=== PATIENT | female | born 1945 | race Caucasian/White ===

== ENCOUNTER 2025-10-06 10:11 | Outpatient (AMB) | payer MEDICARE, BC, SELFPAY ==
--- NOTE | 2025-10-06 10:13 | A.PHYSOV ---
Vital Signs 10/06/25 10:18 Height 5 ft 1 in Weight 172 lb BMI 32.5 Intake Visit Reasons: [facility]- low back pain Intake Note: Patient is a 80 year old female here today for a new patient office visit. Patient has been referred for chronic lower back pain. Coiled Coil Inspector Required: No Allergies No Known Allergies Allergy (Verified 10/06/25 10:14) HPI Comments Details: History of Present Illness The patient is an 80 year old individual presenting for evaluation of chronic lower back pain. The patient states the pain has been present for quite a while and is primarily located in the lower back without radiation into the legs. The patient denies any history of sciatica. The patient reports one episode of pain so severe that the patient was unable to get out of bed. The pain is exacerbated by weather changes, specifically rain, and improves with movement and walking. It is also worse in the mornings, and the patient reports difficulty rising from a seated or lying position. Today, the pain level is rated a 4 out of 10. Past treatments include qbjx-tzo-quazqgn medications like Advil and Aleve, as well as topical agents such as Aspercreme. The patient was prescribed meloxicam, which provided significant relief, and now uses it on an as-needed basis. The patient has not previously undergone physical therapy for the back or seen a chiropractor. I reviewed the referring provider's no prior to consultation. Pain Description - Onset: The patient has had the pain for quite a while. - Location: The pain is primarily in the lower back, more so on the right side, and does not radiate into the legs. - Severity: Current pain is a 4/10, though it was worse yesterday. - Exacerbating Factors: Pain worsens with rain and barometric pressure changes, bending forward, and rising from a seated or lying position. - Relieving Factors: Pain improves once the patient is up and moving around. PFSH Surgical History Hx of tonsillectomy Status post Mohs surgery H/O: hysterectomy History of cholecystectomy Previous section Social History Alcohol intake: never Patient Tobacco Use Status: Never used Tobacco Review of Systems Narrative Review of Systems - Musculoskeletal: Reports chronic lower back pain, which is worse with inactivity and improves with movement. - Reports symptoms are exacerbated by weather changes. - Neurological: Denies radiating leg pain or sciatica. Physical Exam Exam Exam: Physical Exam Lumbar Spine: Examination of her lumbar spine, there is no visible swelling or deformity. She is tender to lower lumbar facets on the right. She is otherwise nontender. Full range of motion of the lumbar spine. She does have an increase in pain with facet loading. Special Tests: Lhermittes sign was negative Heel Toe walk is normal Left straight leg raise: Negative Right straight leg raise: Negative Special tests [place] test is negative Ganslen's test is negative SI Joint compression test negative Ishan test negative Piriformis stretch is negative Lower Extremities: Full range of motion bilateral lower extremities. No calf pain or edema. Neuro: Sensation: Intact to lower extremities bilaterally Strength L2 (Psoas): 5/5 on the left and 5/5 on the right. L3 (Quads): 5/5 on the left and 5/5 on the right. L4 (Ant tibialis): 5/5 on the left and 5/5 on the right. L5 (EHL) 5/5 on the left and 5/5 on the right. S1 (Gastroc): 5/5 on the left and 5/5 on the right. DTR L4: (Patellar) Left 2 Right 2 S1: (Achilles) Left 2 Right 2 Babinski Downgoing No pathologic clonus. No involuntary movement. Vital Signs: BMI result Body Mass Index 32.5 Assessment & Plan Assessment & Plan (1) Low back pain: Code(s): M54.50 - Low back pain, unspecified Category: Medical Qualifiers: Chronicity: chronic Back pain laterality: right Sciatica presence: without sciatica Qualified Code(s): M54.50 - Low back pain, unspecified; G89.29 - Other chronic pain (2) Lumbar spondylolysis: Code(s): M43.06 - Spondylolysis, lumbar region Category: Medical Plan Pain Management - Affect: At its worst, the pain was described as through the roof. - Analgesia: The patient currently uses meloxicam on an as-needed basis, which has been very effective. - The patient previously used [id number] NSAIDs and topical creams. - Current pain level is 4/10. - Adverse Effects: None reported. - Activities of Daily Living: The patient reports difficulty getting out of bed and standing up from a chair, requiring effort. - Function improves with ambulation. - Aberrant Drug Related Behaviors: The patient appropriately uses meloxicam only as needed to minimize medication intake. Plan Patient was informed and verbally consented to the use of an ambient scribe for clinic note documentation during this visit. 1. Low Back Pain The patient's chronic lower back pain is consistent with a diagnosis of degenerative disc disease, as confirmed by a recent MRI showing moderate narrowing at L3-4 on the right. Despite the imaging findings, the patient's symptoms are primarily mechanical and axial, without evidence of radicular nerve pain. Conservative and invasive treatment options were discussed, including physical therapy, medications, and spinal injections. The patient elected to begin with conservative management. An order for physical therapy will be provided. A muscle relaxer will be prescribed for nighttime use to help with pain and sleep. The patient may continue using meloxicam as needed for pain. The patient was advised to return for follow-up if symptoms do not improve or worsen with therapy to consider other options, such as injections. Discussion Notes I explained to the patient that the diagnosis is degenerative disc disease based on MRI findings, with the most affected level being L3-4. I noted that despite the narrowing seen on imaging, the clinical presentation does not suggest significant nerve pain. We reviewed treatment options, including conservative measures like physical therapy and medications, as well as more invasive procedures like cortisone injections. I recommended starting with physical therapy as the first step, given it has not been tried for the back previously. The patient agreed with this conservative approach and expressed a desire to avoid injections unless absolutely necessary, acknowledging the associated risks. I will provide an order for physical therapy and prescribe a muscle relaxer for nighttime use. I instructed the patient to follow up if physical therapy is not effective or worsens symptoms, at which point we can reconsider other treatments. Patient Instructions - Please start physical therapy for your lower back. - You will be given a paper order to take to the [facility] physical therapy clinic on [facility] in [place]. - A prescription for a muscle relaxer will be sent to your pharmacy. - You may take this at night to help with pain. - Continue to use your meloxicam medication only when you feel you really need it for pain. - If your pain gets better with physical therapy, you can stop formal therapy and continue doing the exercises at home. - If physical therapy does not help or makes your pain worse, please call our office to schedule a follow-up visit to discuss other options like injections. Orders: Orders PT Evaluation and Treatment Today M43.06 - Spondylolysis, lumbar region, M54.50 - Low back pain, unspecified Medications: New tizanidine HS 4 mg PO ONCE 30 caps 3RF muscle spasticity Coding Level of Care Code Tele New Pt Level 4 (23049) Diagnoses Chronic right-sided low back pain without sciatica M54.50; G89.29 Chronicity: chronic Back pain laterality: right Sciatica presence: without sciatica Lumbar spondylolysis M43.06
[2025-10-06 10:18] VITALS: BMI 32.5
== END 2025-10-06 10:55 | disposition home or self-care (01) ==
LOC: HO.HPHYS 10:11
PROVIDERS: PCP Internal Medicine; Visit Provider Physician Assistant
DX: M54.50 Low back pain, unspecified (principal); G89.29 Other chronic pain; M43.06 Spondylolysis, lumbar region
CPT/HCPCS: 99204

== ENCOUNTER → 2025-10-06 10:11 | Outpatient (BNVA) | payer MEDICARE, BC, SELFPAY | PROVIDERS: PCP Internal Medicine; Visit Provider Physician Assistant | DX: M54.50 Low back pain, unspecified (principal); G89.29 Other chronic pain; M43.06 Spondylolysis, lumbar region | CPT/HCPCS: 99202 ==